=== PATIENT | female | born 1985 | race Caucasian/White ===

== ENCOUNTER 2019-05-16 22:14 | Emergency (ER) | payer BC ==
[~2019-05-16] VITALS: Ht 180.3 cm; Wt 122.7 kg
[2019-05-16 22:35] VITALS: Ht 180.3 cm; Wt 122.7 kg
[2019-05-17 00:25] VITALS: BP 120/73
== END 2019-05-17 00:27 | disposition home or self-care (01) ==
LOC: D.ER 22:14
DX: J02.9 Acute pharyngitis, unspecified (principal); R50.9 Fever, unspecified